=== PATIENT | female | born 1940 | race Caucasian/White ===

== ENCOUNTER 2019-01-29 07:09 | Day surgery (SDC) | payer MEDICARE ==
[~2019-01-29 07:09] MED LIST: BRIMONIDINE 0.2% OPHTH DROPS 5 ML ONE; BSS/LIDOCAINE/EPINEPHRINE 1 ML SYRINGE ONE; CYCLOPENTOLATE 1% OPHTH DROPS 2 ML ONE; EPINEPHrine 1 MG/ML AMP ONE; KETOROLAC 0.45% OPHTH DROPS ONE; PHENYLEPHRINE 2.5% OPHTH 2 ML DROPS ONE; PROPARACAINE 0.5% OPHTH DROPS 15 ML ONE; TIMOLOL 0.5% OPHTH DROPS ONE; TRIAMCIN/MOXIFLOX OPHTHALMIC 0.6 ML VIAL IO ONE; VANCOMYCIN OPHTHALMI 8MG/0.8ML 8 MG/0.8 ML SYRINGE IO ONE
[2019-01-29] MEDS ORDERED: MIDAZOLAM 2 MG/2 ML VIAL IVP ONE (07:10)
[2019-01-29] MEDS ORDERED: LACTATED RINGERS 500 ML IV ONE ×2 (07:35→08:39)
[2019-01-29] MEDS ORDERED: PROPARACAINE 0.5% OPHTH DROPS 15 ML RIGHTEYE ONE ×2 (07:35→08:52)
[2019-01-29] MEDS ORDERED: CYCLOPENTOLATE 1% OPHTH DROPS 2 ML RIGHTEYE ONE (07:35)
[2019-01-29] MEDS ORDERED: KETOROLAC 0.45% OPHTH DROPS RIGHTEYE ONE (07:35)
[2019-01-29] MEDS ORDERED: PHENYLEPHRINE 2.5% OPHTH 2 ML DROPS RIGHTEYE ONE (07:35)
--- NOTE | 2019-01-29 07:51 | ANESTHESIA ---
Pre-Anesthesia VS, & Labs - Diagnosis Right nuclear sclerotic cataract - Procedure Right phaco with IOL implant Vital Signs: Temp Pulse Resp BP Pulse Ox 37.1 C 85 16 172/73 H 95 01/29/19 07:36 01/29/19 07:36 01/29/19 07:36 01/29/19 07:36 01/29/19 07:36 Height 5 ft 7 in Weight (kg) 74.2 kg - NPO >8 hours, Other (Coffee at 0500) - Is Patient ?: Not Applicable - Lab Results Lab results reviewed: No Home Medications and Allergies Home Medications: Ambulatory Orders Cetirizine HCl [Allergy Relief] 10 mg PO DAILY 01/28/19 Guaifenesin [Mucinex] 600 mg PO DAILY 01/28/19 Cetirizine HCl [Allergy Relief] 10 mg PO DAILY 01/28/19 Guaifenesin [Mucinex] 600 mg PO DAILY 01/28/19 Allergies/Adverse Reactions: Allergies Allergy/AdvReac Type Severity Reaction Status Date / Time Sulfa (Sulfonamide Allergy Unknown Verified 01/28/19 13:13 Antibiotics) Anes History & Medical History - Anesthetic History Anesthesia Complications: reports: No previous complications Family history of Anesthesia Complications: Denies Family history of Malignant Hyperthermia: Denies - Medical History Cardiovascular: reports: None Pulmonary: reports: Shortness of breath Gastrointestinal: reports: None Urinary: reports: None Neuro: reports: None Musculoskeletal: reports: None Endocrine/Autoimmune: reports: None Blood Disorders: reports: None Skin: reports: Rosacea Smoking Status: Current some day smoker Psychosocial: reports: No issues indicated - Surgical History Eyes Ears Nose Throat (EENT): Tonsil/Adenoidectomy Gynecologic: Dilation and currettage, Other Dermatologic: Skin cancer surgery Exam General: Alert, Oriented x3 Dental: Poor dentition Mouth Openin Fingerbreadth Neck Mobility: Normal Mallampati classification: II Thyromental Distance: greater than 6 cm Respiratory: Lungs clear Cardiovascular: Regular rate Neurological: Normal speech Mental/Cognitive Status: Alert/Oriented X3 Cognitive Status: Within normal limits Plan Anesthesia Type: MAC Consent for Procedure(s) Verified and Reviewed: Yes Code Status: Attempt Resuscitation ASA classification: 2-Mild systemic disease Is this case an emergency?: No
[2019-01-29] MEDS ORDERED: BRIMONIDINE 0.2% OPHTH DROPS 5 ML OPTH ONE (08:51)
[2019-01-29] MEDS ORDERED: EPINEPHrine 1 MG/ML AMP IVP ONE (08:51)
[2019-01-29] MEDS ORDERED: BSS/LIDOCAINE/EPINEPHRINE 1 ML SYRINGE IO ONE (08:52)
[2019-01-29] MEDS ORDERED: TIMOLOL 0.5% OPHTH DROPS OPTH ONE (08:52)
[2019-01-29] MEDS ORDERED: CHONDR SULF/HYALURONATE SYRINGE IO ONE (08:52)
[2019-01-29] MEDS ORDERED: TRIAMCIN/MOXIFLOX OPHTHALMIC 0.6 ML VIAL IO ONE (08:53)
[2019-01-29] MEDS ORDERED: VANCOMYCIN OPHTHALMI 8MG/0.8ML 8 MG/0.8 ML SYRINGE IO ONE (08:53)
[2019-01-29 09:08] VITALS: BP 143/72
--- NOTE | 2019-01-29 09:28 | OPERATIVE REPORT ---
DATE OF SERVICE: 01/29/2019 Physician: Prakash Samano MD PREOPERATIVE DIAGNOSIS: Visually significant cataract, right eye. This was her first cataract surge ry. POSTOPERATIVE DIAGNOSIS: Visually significant cataract, right eye. This was her first cataract surg ariela. PROCEDURE: Phacoemulsification with posterior chamber intraocular lens implant, right eye. SURGEON: Prakash Samano MD ANESTHESIA: Monitored anesthesia care. COMPLICATIONS: None. OPERATIVE INDICATIONS: This is a 78-year-old woman with progressive vision loss in the right eye due to 3+ nuclear sclerotic cataract. Best corrected visual acuity was 20/40, with glare to 20/630 in t he right eye. Indications for surgery were overall decrease in vision, difficulty driving in low lig ht or at night, difficulty driving at night because headlights from other vehicles, and difficulty wi th glare or bright lights in any situation. She was consented at length concerning risks and benefit s of cataract surgery, after which she expressed a desire to proceed with surgery. OPERATIVE PROCEDURE: Patient was taken to OR #3 and placed under monitored anesthesia care. A surgi erica timeout was conducted confirming correct patient, correct procedure, and correct surgical site. She was given topical anesthesia, then prepped and draped in the usual sterile fashion. The eye was entered at the 12 and 9 o'clock positions. Intracameral Shugarcaine was injected into the anterior c hamber, followed by Viscoat. A continuous-tear curvilinear capsulorrhexis was performed. The nucleu s was hydrodissected and phacoemulsified. The cortex was evacuated using automated infusion and aspi ration. Provisc was injected in the capsular bag, and a 20.5 diopter intraocular lens inserted in th e bag. Approximately 0.8 mL of a mixture of triamcinolone, moxifloxacin and vancomycin was injected subconjunctivally in the superior quadrant for infection and inflammation prophylaxis. I and A, was used to evacuate the viscoelastic materials. The eye was inflated to physiologic pressure using lisbet nced salt solution and found to be watertight. Patient was taken from the operating room in good con dition and given postoperative instructions. TD: 01/29/2019 09:17
== END 2019-01-29 07:10 | disposition home or self-care (01) ==
LOC: SDS 07:09
PROVIDERS: ATTEND Ophthalmology
PROC: 08RJ3JZ Replacement of Right Lens with Synthetic Substitute, Percutaneous Approach (ICD-10-PCS; principal; 2019-01-29 08:30)
DX: H25.11 Age-related nuclear cataract, right eye (principal); F17.200 Nicotine dependence, unspecified, uncomplicated
CPT/HCPCS: 66984; A9270; J3490; V2632

== ENCOUNTER 2019-09-15 08:00 | Outpatient (CLI) | payer MEDICARE ==
[2019-09-15 17:52] LABS: BASOPHILS # (AUTO) 0.1 10^3/uL (0.0-0.1); BASOPHILS % (AUTO) 1.2 %; EOSINOPHILS # (AUTO) 0.3 10^3/uL (0.0-0.7); EOSINOPHILS % (AUTO) 4.7 %; LYMPHOCYTES # (AUTO) 1.3 10^3/uL (1.5-3.5); LYMPHOCYTES % (AUTO) 19.1 %; MEAN CORPUSCULAR HEMOGLOBIN 31.1 pg (27.0-31.0); MEAN CORPUSCULAR HGB CONC 32.3 g/dL (32.0-36.0); MEAN CORPUSCULAR VOLUME 96.4 fL (81.0-99.0); MEAN PLATELET VOLUME 9.5 fL (7.9-10.8); MONOCYTES # (AUTO) 0.7 10^3/uL (0.0-1.0); MONOCYTES % (AUTO) 10.1 %; NEUTROPHILS # (AUTO) 4.3 10^3/uL (1.5-6.6); NEUTROPHILS % (AUTO) 64.6 %; PLT - PLATELET COUNT 213 10^3/uL (130-450); RED CELL DISTRIBUTION WIDTH 13.4 % (12.0-15.0); WHITE BLOOD COUNT 6.6 x10^3/uL (4.8-10.8)
[2019-09-15 17:56] LABS: BILIRUBIN,URINE NEGATIVE (NEGATIVE); CLARITY,URINE HAZY (CLEAR); GLUCOSE, URINE (UA) NEGATIVE (NEGATIVE); KETONES,URINE (UA) NEGATIVE (NEGATIVE); LEUKOCYTE ESTERASE, URINE SMALL (NEGATIVE); NITRITE,URINE NEGATIVE (NEGATIVE); OCCULT BLOOD,URINE NEGATIVE (NEGATIVE); PROTEIN,URINE NEGATIVE (NEGATIVE); UROBILINOGEN,URINE 0.2 (NORMAL) E.U./dL (NORMAL)
[2019-09-15 18:01] LABS: ALBUMIN/GLOBULIN RATIO 1.3 (1.0-2.2); BILIRUBIN,TOTAL 0.3 mg/dL (0.2-1.0); CREATININE 0.7 mg/dL (0.4-1.0); TOTAL PROTEIN 7.1 g/dL (6.7-8.2)
[2019-09-15 18:36] LABS: RBC,URINE 0-5 /HPF (0-5)
[2019-09-15 18:37] LABS: BACTERIA,URINE Few /HPF (None Seen); SQUAMOUS EPITHELIAL CELL,UR MOD Squamous (<= Few)
== END 2019-09-15 23:59 | disposition home or self-care (01) ==
LOC: LAB.WCP 08:00
PROVIDERS: ATTEND Family Medicine
DX: R60.9 Edema, unspecified (principal); I10 Essential (primary) hypertension
CPT/HCPCS: 36415; 80053; 81001; 85025

== ENCOUNTER 2019-09-15 11:47 | Outpatient (CLI) | payer MEDICARE ==
--- NOTE | 2019-09-16 09:25 | XRAY Report ---
Reason: COPD, SHORTNESS OF BREATH Procedure Date: 09/15/2019 Accession Number: [id number] / [id number] Procedure: WCP - Chest 2 View X-Ray CPT Code: 41786 Final Report FULL RESULT: EXAM: CHEST RADIOGRAPHY 2 VIEWS EXAM DATE: 09/15/2019. CLINICAL HISTORY: Chronic obstructive pulmonary disease exacerbation. Shortness of breath. COMPARISON: AP portable chest done 06/30/2007. TECHNIQUE: PA and lateral views. FINDINGS: Lungs/Pleura: Normal vasculature. Increased density in the right lateral costal phrenic angle. Lungs are otherwise clear. No pleural fluid or pneumothorax. Mediastinum: Mild cardiomegaly and aortic tortuosity and atherosclerosis. Otherwise normal mediastinal contours. Bones: Mild degenerative changes of the spine. IMPRESSION: Small focus of increased density in the right lateral costophrenic angle; differential includes small focus of scar, atelectasis or pneumonia. Lungs are otherwise clear. Mild cardiomegaly, the heart larger than on 06/30/2007. RADIA
== END 2019-09-15 23:59 | disposition home or self-care (01) ==
LOC: DI.WCP 11:47
PROVIDERS: ATTEND Family Medicine
DX: J44.1 Chronic obstructive pulmonary disease with (acute) exacerbation (principal); I51.7 Cardiomegaly; R91.8 Other nonspecific abnormal finding of lung field
CPT/HCPCS: 71046

== ENCOUNTER 2019-11-06 08:00 | Outpatient (CLI) | payer MEDICARE ==
[2019-11-06 19:24] LABS: CALCIUM 9.4 mg/dL (8.5-10.3); CREATININE 0.9 mg/dL (0.4-1.0)
== END 2019-11-06 23:59 | disposition home or self-care (01) ==
LOC: LAB.WCP 08:00
PROVIDERS: ATTEND Family Medicine
DX: I10 Essential (primary) hypertension (principal)
CPT/HCPCS: 36415; 80048

== ENCOUNTER 2019-12-07 08:00 | Outpatient (CLI) | payer MEDICARE | END 2019-12-07 23:59 | disposition home or self-care (01) | LOC: LAB.WCP 08:00 | PROVIDERS: ATTEND Internal Medicine | DX: N30.00 Acute cystitis without hematuria (principal) | CPT/HCPCS: 81002 ==

== ENCOUNTER 2019-12-15 08:44 | Outpatient (CLI) | payer MEDICARE | END 2019-12-15 08:45 | disposition home or self-care (01) | LOC: DI 08:44 | PROVIDERS: ATTEND Family Medicine | DX: I51.7 Cardiomegaly (principal); R06.02 Shortness of breath; I10 Essential (primary) hypertension; I34.0 Nonrheumatic mitral (valve) insufficiency | CPT/HCPCS: 93306 ==

== ENCOUNTER 2020-07-05 07:00 | Outpatient (CLI) | payer MEDICARE ==
[2020-07-05 13:50] LABS: BASOPHILS % (AUTO) 0.8 %; HCT - HEMATOCRIT 31.5 % (37.0-47.0); HGB - HEMOGLOBIN 10.3 g/dL (12.0-16.0); LYMPHOCYTES % (AUTO) 21.8 %; MEAN CORPUSCULAR HEMOGLOBIN 30.7 pg (27.0-31.0); MEAN CORPUSCULAR HGB CONC 32.7 g/dL (32.0-36.0); MEAN PLATELET VOLUME 10.1 fL (7.9-10.8); MONOCYTES % (AUTO) 9.4 %; NEUTROPHILS % (AUTO) 67.2 %; PLT - PLATELET COUNT 133 10^3/uL (130-450); RED BLOOD COUNT 3.35 10^6/uL (4.20-5.40); RED CELL DISTRIBUTION WIDTH 15.3 % (12.0-15.0); WHITE BLOOD COUNT 3.6 x10^3/uL (4.8-10.8)
[2020-07-05 13:53] LABS: SLIDE REVIEW? Indicated
[2020-07-05 14:03] LABS: ALBUMIN 2.8 g/dL (3.2-5.5); ALBUMIN/GLOBULIN RATIO 0.9 (1.0-2.2); ALKALINE PHOSPHATASE 82 IU/L (42-121); ALT ALANINE AMINOTRANSFERASE 34 IU/L (10-60); AST ASPARTATE AMINOTRANSFERASE 29 IU/L (10-42); BILIRUBIN,TOTAL < 0.2 mg/dL (0.2-1.0); BUN - BLOOD UREA NITROGEN 20 mg/dL (6-20); CALCIUM 9.2 mg/dL (8.5-10.3); CARBON DIOXIDE - CO2 26 mmol/L (21-32); CHLORIDE 100 mmol/L (101-111); CREATININE 0.5 mg/dL (0.4-1.0); GFR - MDRD 119 (>89); GLUCOSE 91 mg/dL (70-100); POTASSIUM 4.2 mmol/L (3.5-5.0); SODIUM 141 mmol/L (135-145); TOTAL PROTEIN 5.8 g/dL (6.7-8.2)
[2020-07-05 14:13] LABS: ABNORMAL LYMPHS % (MANUAL) 0 %
[2020-07-05 14:18] LABS: BAND NEUTROPHILS % (MANUAL) 3 %; BASOPHILS % (MANUAL) 1 %; LYMPHOCYTES # (MANUAL) 0.7 10^3/uL (1.5-3.5); LYMPHOCYTES % (MANUAL) 14 %; MONOCYTES # (MANUAL) 0.1 10^3/uL (0.0-1.0); NEUTROPHILS # (MANUAL) 2.7 10^3/uL (1.5-6.6); REACTIVE LYMPHS % (MANUAL) 5 %
[2020-07-05 14:19] LABS: PLATELET MORPHOLOGY NORMAL APPEARANCE (NORMAL); RBC MORPHOLOGY (MULTIPLE) 1+ ANISOCYTOSIS (NORMAL); WBC MORPHOLOGY (MULTIPLE) 1+ TOXIC GRANULATION (NORMAL)
[2020-07-05 14:20] LABS: DIFFERENTIAL COMMENT MANUAL DIFFERENTIAL; PLATELET ESTIMATE, MANUAL NORMAL (130-450,000) (NORMAL)
== END 2020-07-05 23:59 | disposition home or self-care (01) ==
LOC: LAB.R 07:00
PROVIDERS: ATTEND Internal Medicine
DX: C56.9 Malignant neoplasm of unspecified ovary (principal)
CPT/HCPCS: 80053; 85025

== ENCOUNTER 2020-07-12 14:45 | Outpatient (CLI) | payer MEDICARE ==
[2020-07-12 20:11] LABS: BASOPHILS % (AUTO) 0.7 %; EOSINOPHILS # (AUTO) 0.2 10^3/uL (0.0-0.7); EOSINOPHILS % (AUTO) 3.7 %; HGB - HEMOGLOBIN 10.2 g/dL (12.0-16.0); LYMPHOCYTES # (AUTO) 1.4 10^3/uL (1.5-3.5); LYMPHOCYTES % (AUTO) 24.9 %; MEAN CORPUSCULAR HEMOGLOBIN 30.9 pg (27.0-31.0); MEAN CORPUSCULAR HGB CONC 31.9 g/dL (32.0-36.0); MEAN PLATELET VOLUME 9.3 fL (7.9-10.8); MONOCYTES # (AUTO) 0.9 10^3/uL (0.0-1.0); MONOCYTES % (AUTO) 15.5 %; NEUTROPHILS % (AUTO) 52.9 %; PLT - PLATELET COUNT 263 10^3/uL (130-450); RED CELL DISTRIBUTION WIDTH 16.4 % (12.0-15.0); WHITE BLOOD COUNT 5.6 x10^3/uL (4.8-10.8)
[2020-07-12 20:13] LABS: ALBUMIN 3.4 g/dL (3.2-5.5); ALBUMIN/GLOBULIN RATIO 1.1 (1.0-2.2); BILIRUBIN,TOTAL 0.5 mg/dL (0.2-1.0); CREATININE 0.8 mg/dL (0.4-1.0); POTASSIUM 3.6 mmol/L (3.5-5.0); TOTAL PROTEIN 6.4 g/dL (6.7-8.2)
== END 2020-07-12 23:59 | disposition home or self-care (01) ==
LOC: LAB.R 14:45
PROVIDERS: ATTEND Internal Medicine
DX: C56.9 Malignant neoplasm of unspecified ovary (principal)
CPT/HCPCS: 36415; 80053; 85025

== ENCOUNTER 2020-07-29 09:45 | Outpatient (CLI) | payer MEDICARE ==
--- NOTE | 2020-07-29 12:25 | CONSULTATION NOTE ---
Palliative Care Consultation - Referral Referring Provider: Dr. Guerda Roche Time of Visit: 945-02 Referral setting: Home Referral Reason: Ovarian CA/COPD/Goals of Care - Information Sources Records reviewed: RN notes reviewed, Previous records reviewed History/Review of Systems obtained from: Patient Exam limitations: No limitations - History of Present Illness Brief History of Present Illness: This is a 79-year-old woman with metastatic primary ovarian high-grade serous carcinoma, who most recently presented for her first hospitalization in April with increasing shortness of breath, was found to have a large right pleural effusion, left additional mass with peritoneal carcinomatosis, and hepatic c apsular implants. She had underwent a placement of a Port-A-Cath and was initiated on cis-muscogee/Taxol end of May, but then developed increasing abdominal distention and was hospitalized a second time for distal large bowel obstruction. Her bilateral ovarian masses were compressing on sigmoid colon, they had attempted endoscopic stenting but was unsuccessful, so she received a laparoscopic transverse loop colostomy. She unfortunately was also neutropenic, developed Pseudomonas, and was discharged on IV antibiotics.She has been followed by home health, and has slowly improved. Palliative care is meeting with her today to review goals of care, as she is decided not to pursue further chemotherapy. Patient also has comorbidity of stage IV congestive heart failure, known cardiomyopathy with an ejection fraction of 35 to 40%, chronic left bundle branch block, COPD recently stopped smoking, and a left calf superficial vein thrombosis for which she is on Eliquis. She has been at home, functionally improving, she is eating and drinking. She denies any pain, her most persistent symptom has been fatigue. She is intermittently tearful through our conversation, but we are talk about goals of care, she does deny significant depression. She is having trouble adjusting to her colostomy, her daughter is still providing all the care, including emptying the back and changing the colostomy, she does know she needs to learn eventually. She does have longstanding shortness of breath, though reports this is improved with the cessation of smoking. She has good family support, though does admit to financial stressors and concerns for the future. Medical/Surgical History - Past Medical History Cardiovascular: reports: Congestive heart failure (STAGE IV/cardiomyopathy), Hypertension, Deep vein thrombosis (left calf superficial vein thrombosis) Respiratory: reports: COPD, Emphysema, Shortness of breath Neuro: None Endocrine/Autoimmune: reports: None GI: reports: Other (colostomy for bowel obstruction) HEALTH INFORMATION INTERNSHIP: reports: Ovarian cancer : reports: None HEENT: reports: Chronic vision loss Psych: reports: Depression, Anxiety Musculoskeletal: reports: None Derm: reports: Rosacea MRSA Hx?: No - Past Surgical History General: reports: Bowel surgery (for obstruction) /HEALTH INFORMATION INTERNSHIP: reports: Dilation and currettage HEENT: reports: Tonsil/Adenoidectomy Derm: reports: Skin cancer surgery - Substance History Use: Uses substance without health or social issues: Tobacco (quit in April), Alcohol (rarely) Social History - Living Situation Living arrangement: At home Living Situation: With family Support System: Patient has been in the same house for over 43 years, she admits to having a "collection", houses quite cluttered, she reports they have been working on cleaning it out. Her about 2-1/2 years ago, her daughter Rosemary at that time moved in to help with her dad. She does live here with her son Phillip. 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 She does have friends and family that are quite concerned and supportive. She has 4 siblings that are still very active and she is close with as well. Family History - Family History Family History: Mother: , Cancer, Father: , CAD, Sister: Alive and Well (4 siblings still alive), Brother: Alive and Well Family History Comment/Other: son had colon cancer Medications/Allergies - Medications Home Medications: Ambulatory Orders Medication Instructions Recorded Confirmed Albuterol Sulfate [Proair Hfa 2 puffs INH Q6HR PRN 07/29/20 07/29/20 Inhaler] Apixaban [Eliquis] 5 mg PO BID 07/29/20 07/29/20 Aspirin [[place] Aspirin] 81 mg PO DAILY 07/29/20 07/29/20 Carvedilol [Coreg] 6.25 mg PO BID 07/29/20 07/29/20 Furosemide [Lasix] 20 mg PO BID 07/29/20 07/29/20 Ipratropium/Albuterol [Duoneb] 1 vial INH Q6HR PRN 07/29/20 07/29/20 Loperamide [Imodium] 2 mg PO QID PRN 07/29/20 07/29/20 Losartan Potassium 25 mg PO BID 07/29/20 07/29/20 Mometasone/Formoterol [Dulera 100 2 puffs INH BID 07/29/20 07/29/20 Mcg-5 Mcg Inhaler] Nitroglycerin [Nitrostat] 0.4 mg SL .Q5 PRN 07/29/20 07/29/20 Ondansetron [Ondansetron Odt] 8 mg PO Q8HR PRN 07/29/20 07/29/20 Pantoprazole [Protonix] 40 mg PO DAILY 07/29/20 07/29/20 Senna [Senokot] 8.6 mg PO DAILY PRN MDD titrate to 07/29/20 07/29/20 effect polyethylene glycoL 3350 [Miralax] 17 gm PO DAILY PRN 07/29/20 07/29/20 - Allergies Allergies/Adverse Reactions: Allergies Allergy/AdvReac Type Severity Reaction Status Date / Time Sulfa (Sulfonamide Allergy Unknown Verified 01/28/19 13:13 Antibiotics) Review of Systems - Constitutional Constitutional: reports: Fatigue (persistent), Weakness, Weight loss. denies: Fever, Chills - Eyes Eyes: reports: Vision loss - Ears, Nose & Throat Ears, Nose & Throat: reports: Hearing loss, Hearing aids, Dry mouth. denies: Mouth lesions - Cardiovascular Cardiovascular: reports: Edema (improved), Lightheadedness, Exertional dyspnea, Decr. exercise tolerance - Respiratory Respiratory: reports: Orthopnea (sleeps on several pillows), SOB with exertion. denies: Cough, Sputum production, Wheezing - Gastrointestinal Gastrointestinal: reports: Early satiety, Other (colostomy). denies: Abdominal pain, Constipation, Coffee grounds emesis - Genitourinary Genitourinary: reports: Incontinence - Musculoskeletal Musculoskeletal: reports: Muscle aches, Stiffness, Muscle weakness, Joint pain - Integumentary Integumentary: reports: Dryness - Neurological Neurological: reports: General weakness - Psychiatric Psychiatric: reports: Depression, Anxiety - Hematologic/Lymphatic Hematologic/Lymph: reports: Bruising - All Other Systems All Other Systems: reports: Reviewed and negative Physical Exam - Vital Signs Temperature: 97.5 C Pulse Rate: 78 Respiratory Rate: 18 O2 Saturation: 95 (ra @ rest) Blood Pressure: 132/72 - Physical Exam General Appearance: positive: No acute distress, Alert Eyes Bilateral: positive: Normal inspection, Other (watery eyes/allergies) ENT: positive: ENT inspection nml Neck: positive: Trachea midline Cardiovascular: positive: Regular rate & rhythm Respiratory: positive: Diminished throughout. negative: Wheezes Abdomen: positive: Non-tender, Soft, Nml bowel sounds, Distended. negative: Mass Skin: positive: Pallor Extremities: positive: Pedal edema (trace up to mid calf) Neurologic/Psychiatric: positive: Oriented x3, Mood/affect nml, Weakness Palliative Care - POLST Patient has POLST: Yes POLST Status: DNR, Selective Treatment Pain: No pain Tiredness/Fatigue: Mild (1-3) Drowsiness/Sedation: Mild (1-3) Nausea: None Anorexia: Mild (1-3) Dyspnea: Moderate (4-6) Depression: Mild (1-3) Anxiety: Mild (1-3) Feelings of wellbeing/Perceived Quality of Life: Fair, Acceptable, Improved Sleep: Sleeps well Constipation: Intermittent constipation Performance Status: Patient is ambulatory with walker, feels like she is improving in strength. She is having assistance with bathing from home health aide, but getting close to discharge with this. Patient does express decreased activity tolerance, and not back to baseline, though does admit to having functional decline for couple months before her first hospitalization.I would put her at a PPS of 60% - Palliative Care Discussion: Met with patient with specific goal to talk about goals of care. Patient had talked to oncologist, offered her chemotherapy at any point she wanted to come back. She reports she is getting pressure from multiple people, but her family will be supportive of what ever decision she makes. She does feel like her current quality of life is acceptable, recognizing no treatment she will continue to decline. Her understanding is she would have several months. At this point she feels at peace of not pursuing further treatment. Her experience with her last treatment, only worsened her quality of life, though it was in the context of her bowel obstruction. She does understand no treatment means the cancer progresses, and is okay with this. She is hoping to make it to a family reunion this October in [place] with her siblings, and hoping to get some of her affairs in order. She herself took care of several family members who had end-of-life events, she is familiar with caregiving and what that might look like. She wanted to complete the POLST. At this point in time, given her improvement in her health, she would agree to hospitalization for reversible conditions, but is quite clear she would be a DN AR/DNI. Her goal for end-of-life, is to have a comfortable respectful at home, she is not fearful of this. She does not feel like she is depressed, she does have depressive symptoms of sadness and grief over her decline. She is hoping to continue to be able to live in the moment and spend time with friends and family. I did introduce hospice is part of the continuum, at this point she is focusing on maximizing function and quality of life, will continue with home health for a few more weeks. They are working on getting them independent in colostomy management. We also talked about DPOA, patient does have 3 children, discussed the need to designate one is final decision maker. She feels like her son Rico Butler is his close to how she thinks of all 3 children. Did provide her a simple form, she will discuss with children and decide. Impression and Recommendations - Palliative Care Impression: This is a 79-year-old woman who presents with multiple serious illnesses, including ovarian cancer with peritoneal mets/liver mets and recent bowel obstruction with transverse colostomy. She also has known stage IV CHF, advance d COPD, and has experienced functional decline over the last several months. She is improving from her last hospitalization, is hoping for some quantity of time as well as quality. She is choosing at this juncture no further chemotherapy, and focus on quality of life. Palliative care to provide support regarding pain and symptom management, though presents with low symptom burden today, and anticipatory guidance and advanced care planning Recommendations/Counseling Done: 1. Depression. Patient does present with depressive symptoms, is appropriately tearful through the conversation. We did discuss the continuum of depression from depression symptoms to persistent sadness and mood disorder. At this point in time patient appears to be adjusting, counseled regarding the role of antidepressants. Counseled also regarding coping with serious illness, normal grief and loss reactions, and anticipatory guidance. 2. Ovarian cancer with peritoneal/liver mets. Patient does have high tumor burden, though low symptom burden. Patient without treatment, would expect progression of cancer with prognosis of 6 months or less, she would meet hospice criteria at this point, we will continue to monitor for for functional decline and worsening symptoms. 3. Advanced care planning. Counseling provided regarding eliciting goals of care, completion of the POLST with DN AR/DNI and selective treatments. Counseled regarding the continuum of care, including the role of palliative care and hospice. Patient continue with home health with improvement, goals or functional improvement is well as independence and management of colostomy. Recommended patient complete DPOA. Agreed for meeting in 3 weeks, daughter Rosemary was not present for visit, will include for future planning issues. She did show up at end of visit, at this point in time has no pressing questions, I did provide contact information. 75 minutes with greater than 50% of this time in counseling regarding goals of care, setting of rapport, evaluation of symptom management, and anticipatory guidance.
--- OUTSIDE RECORDS SUMMARY | 2020-08-03 01:55 | EXTERNAL MEDICAL SUMMARY RPT | Continuity of Care Document ---
:1940 Demographics Phone Unavailable Preferred Language Unknown Marital Status Unknown Ep[employer]alian Affiliation Unknown Race Unknown Ethnic Group Unknown Author Organization [facility] Address [address] [place] [address] Phone Problems date description facility [id number] Pleural effusion, not elsewhere [facility] classified [id number] Gastrointestinal hemorrhage, [facility] unspecified Social History date description facility [id number]
== END 2020-07-29 09:46 | disposition home or self-care (01) ==
LOC: PC 09:45
PROVIDERS: ATTEND Nurse Practitioner Adult Health
DX: Z51.5 Encounter for palliative care (principal); F32.9 Major depressive disorder, single episode, unspecified; C56.9 Malignant neoplasm of unspecified ovary; C78.6 Secondary malignant neoplasm of retroperitoneum and peritoneum; C78.7 Secondary malignant neoplasm of liver and intrahepatic bile duct; I11.0 Hypertensive heart disease with heart failure; I50.9 Heart failure, unspecified; J43.9 Emphysema, unspecified; Z93.3 Colostomy status; Z87.891 Personal history of nicotine dependence; Z66 Do not resuscitate
CPT/HCPCS: 99345

== ENCOUNTER 2020-08-25 09:00 | Outpatient (CLI) | payer MEDICARE ==
--- NOTE | 2020-08-25 10:44 | CONSULTATION NOTE ---
Palliative Care Follow Up - Referral Referring Provider: Dr. Sarabia Time of Visit: 6516-2478 Referral setting: Home Referral Reason: Ovarian CA - Information Sources Records reviewed: RN notes reviewed, Previous records reviewed History/Review of Systems obtained from: Patient - History of Present Illness Update Brief HPI Update: This is a 79-year-old woman with metastatic primary ovarian high-grade serous carcinoma, with known peritoneal carcinomatosis and hepatic capsular implants. She had initiated chemotherapy on cis-[place]/Taxol end of May, but unfortunately developed distal bowel obstruction, developed infection secondary her neutropenia, and received a laparoscopic transverse loop colostomy. She has been followed by [facility], has been steadily improving, she had been on IV antibiotics which had precipitated a severe rash, despite several weeks since then, she still has persistent pruritus rash, and is quite uncomfortable. Her skin is quite dry and is been fairly persistent. Patient has regained some functional status, she is ambulatory for short distances though has pretty severe activity intolerance. She also though has comorbidies of stage IV congestive heart failure, known cardiomyopathy with lower extremity swelling improved, and COPD who recently stopped smoking. She does have intermittent pain, bloating, and had decided not to return back for treatment. Patient is now more somewhat ambivalent. Patient did have some slowing of her bowels and concern for recurrent obstruction, she did receive a CT scan 08/11/20 which showed increased atelectasis of her left lung base, right pleural effusion is stable, her liver hypodensities had measures smaller, as well as her retroperitoneal lymph nodes, her right and left ovarian masses appeared to measure slightly smaller, with her left ovarian mass currently at 39 x 41.9 mm compared to prior 44 x 48.1 mm, and right ovarian mass is currently at 36.1 x 29.8 mm compared to her prior 32.6 x 44.8 mm. Given patient's stabilization, and some improvement, she is wondering if there is "low-dose" chemotherapy, other options, including immunotherapy. We did discuss in the context that she has actually an improved scan, mild improvement in her symptoms, that it would not be unreasonable to meet again with her oncologist. But if she were planning to do this, she need to do this more urgently then continue to wait on this. Past Medical History: Congestive heart failure/cardiomyopathy, hypertension, left calf superficial vein thrombosis on Eliquis, COPD, emphysema, right pleural effusion, colostomy, chronic vision loss, depression, anxiety, rosacea Social History - Living Situation Living arrangement: At home Living Situation: With family Support System: Patient is living in the same house for over 43 years, she does have "a collection". Her about 2-1/2 years ago, her daughter Rosemary moved in to help with her dad, she comes with a 7-year-old grandson. 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 She has many friends and families that are quite concerned and remains supportive. She has four siblings that are still very active that she is close to, she is hoping to make it to the family reunion in [place] in October. Medications/Allergies - Medications Home Medications: Ambulatory Orders Medication Instructions Recorded Confirmed Albuterol Sulfate [Proair Hfa 2 puffs INH Q6HR PRN 07/29/20 08/26/20 Inhaler] Apixaban [Eliquis] 5 mg PO BID 07/29/20 08/26/20 Aspirin [[place] Aspirin] 81 mg PO DAILY 07/29/20 08/26/20 Carvedilol [Coreg] 6.25 mg PO BID 07/29/20 08/26/20 Furosemide [Lasix] 20 mg PO BID 07/29/20 08/26/20 Ipratropium/Albuterol [Duoneb] 1 vial INH Q6HR PRN 07/29/20 08/26/20 Loperamide [Imodium] 2 mg PO QID PRN 07/29/20 08/26/20 Losartan Potassium 25 mg PO BID 07/29/20 08/26/20 Mometasone/Formoterol [Dulera 100 2 puffs INH BID 07/29/20 08/26/20 Mcg-5 Mcg Inhaler] Nitroglycerin [Nitrostat] 0.4 mg SL .Q5 PRN 07/29/20 08/26/20 Ondansetron [Ondansetron Odt] 8 mg PO Q8HR PRN 07/29/20 08/26/20 Pantoprazole [Protonix] 40 mg PO DAILY 07/29/20 08/26/20 Senna [Senokot] 8.6 mg PO DAILY PRN MDD titrate to 07/29/20 08/26/20 effect polyethylene glycoL 3350 [Miralax] 17 gm PO DAILY PRN 07/29/20 08/26/20 Prednisone 5 mg PO DAILY 08/26/20 08/26/20 Simethicone [Gas Relief] 180 mg PO TID 08/26/20 08/26/20 - Allergies Allergies/Adverse Reactions: Allergies Allergy/AdvReac Type Severity Reaction Status Date / Time Sulfa (Sulfonamide Allergy Unknown Verified 01/28/19 13:13 Antibiotics) Review of Systems - Constitutional Constitutional: reports: Fatigue (persistent and worsening), Weakness (ambulating more), Weight loss. denies: Fever, Chills - Eyes Eyes: reports: Vision loss, Corrective lenses (needs new glasses after cataract surgery on right) - Ears, Nose & Throat Ears, Nose & Throat: reports: Hearing loss, Hearing aids, Dry mouth. denies: Mouth lesions - Cardiovascular Cardiovascular: reports: Edema (improved), Lightheadedness, Exertional dyspnea, Decr. exercise tolerance - Respiratory Respiratory: reports: Orthopnea (sleeps on several pillows), SOB with exertion. denies: Cough, Sputum production, Wheezing - Gastrointestinal Gastrointestinal: reports: Abdominal pain (reports increase discomfort with palpation/bag change yesterday), Early satiety, Other (colostomy;; significant gas). denies: Constipation, Coffee grounds emesis - Genitourinary Genitourinary: reports: Incontinence - Musculoskeletal Musculoskeletal: reports: Back pain (new symptom), Muscle aches, Stiffness, Muscle weakness, Joint pain, Assistive devices (uses walker) - Integumentary Integumentary: reports: Rash (worsening; all body mostly on trunk/back but on arms/legs had improved with prednisione now bothersome again), Pruritis (benadryl not helpful), Dryness, Hair changes (alopecia) - Neurological Neurological: reports: General weakness, Memory problems - Psychiatric Psychiatric: reports: Depression, Anxiety - Hematologic/Lymphatic Hematologic/Lymph: reports: Bruising - All Other Systems All Other Systems: reports: Reviewed and negative Physical Exam - Vital Signs Temperature: 97.7 C Pulse Rate: 75 Respiratory Rate: 18 O2 Saturation: 94 (ra @ rest) Blood Pressure: 118/64 - Physical Exam General Appearance: positive: No acute distress, Alert Eyes Bilateral: positive: Normal inspection ENT: positive: ENT inspection nml Neck: positive: Trachea midline Cardiovascular: positive: Regular rate & rhythm Respiratory: positive: Diminished throughout. negative: Wheezes Abdomen: positive: Soft, Nml bowel sounds, Tenderness, Distended. negative: Mass Skin: positive: Pallor, Dryness, Rash Extremities: positive: Pedal edema (trace up to mid calf) Neurologic/Psychiatric: positive: Oriented x3, Mood/affect nml, Weakness, Flat affect Palliative Care - POLST Patient has POLST: Yes POLST Status: DNR, Selective Treatment Pain: Pain worsening, Location (left abdominal area; low backl) Tiredness/Fatigue: Moderate (4-6) Drowsiness/Sedation: Mild (1-3) Nausea: None Anorexia: Mild (1-3) (early satiet) Dyspnea: Moderate (4-6) Depression: Mild (1-3) Anxiety: Moderate (4-6) Feelings of wellbeing/Perceived Quality of Life: Fair, Acceptable, Improved Sleep: Variable sleep pattern Constipation: No Performance Status: Patient is able to ambulate short distances, she uses a walker. Her [id number] is going to take over helping with bathing, as home health aide is being discharged. They do help her with meal prep, transportation, her son is helping her with finances. I would put her at a PPS of 60% - Palliative Care Discussion: Patient has many stressors, most persistent is her financial. Her son is trying to help her. Did go ahead and make a referral to [facility] to see if she would qualify for some assistance. Encouraged her to contact friends of friends for some of her medical bills. Patient had made a choice not to continue with treatment, she remains now somewhat more ambivalent. She is actually plateaued or may be even improved a little, she is still having persistent fatigue and a high anxiety regarding her pending decline. She is asking about other treatment modalities, discussed it would most likely be more satisfying if she had a conversation with her oncologist. She has had a CT scan done recently, which actually showed decreased size of tumors, did encourage her to at least go have a conversation to put herself in a better place of acceptance. She remains quite resistant to transitioning to hospice, but does understand without treatment she will continue to decline. She would like to focus on quality of life, she is feeling more fatigued and is hoping that she would feel better at least for the short- term. She does have some mild depression, is not interested in antidepressant, her goals are to make it to the family reunion this summer in October. Impression and Recommendations - Palliative Care Impression: This is a 79-year-old woman who presents with multiple serious illnesses, including ovarian cancer with peritoneal mets/liver mets and transverse colostomy for bowel obstruction. She also has known stage IV CHF, advanced COPD, but has stabilized and improved some from her last hospitalization. She is hoping for quantity of time as well as quality, she is now wondering about further chemotherapy and ambivalent whether she would pursue or not. She had recent CT scan, that actually showed decrease in her tumor burden, have encouraged her to at least meet one more time with oncology. Palliative care to provide support regarding pain and symptom management, anticipatory guidance, and transition to hospice when appropriate Recommendations/Counseling Done: 1. Rash. This is remained persistent since her IV antibiotics, providing a significant mount discomfort. She has used topical, Benadryl, with fluctuating results. We will go ahead and initiate prednisone 5 mg daily at least for short- term, call to coordinate with PCP. 2. Fatigue this is multifactorial, Patient with multiple comorbidities, some weight loss, is doing better with her fluids, and some persistent depressive symptoms. Discussed prednisone 5 mg may also help her with her energy and as well as sense of wellbeing. 3. Depression. Patient presents with fluctuating depressive symptoms. She is somewhat ambivalent regarding now having declined therapy for her cancer. We did discuss in light of her current situation, with her physical status slightly improved or plateaued, her recent CT scan with some improvements, recommended she follow-up with oncology. If she is considering doing this, recommended she do this as soon as possible if she is going to embark on any treatment plan. 4. Colostomy. Patient still having difficulty excepting colostomy, her daughter still empties her bag and changes it. Unfortunately fell off the other day, adding to her distress. Encouraged she continue to participate in care of the colostomy, as this will facilitate some acceptance. Counseling provided to normalize feelings of distress with body image changes. 5. Generalized weakness. Patient has made some improvement with her functional status, counseling provided regarding ways of progressive ambulation, adding more activity into her day. Patient is pending home health care discharge, encouraged her to go out with her friends, plan short trips, and "live more in the moment" given the seriousness of her current situation. 6. Advanced care planning. Patient does have POLST in place with DN AR/DNI and selective treatments. Patient does not feel like she is in a place to transition to hospice, as she is very anxious but currently is not excepting any life- prolonging treatments. Counseling provided again regarding cancer treatments, overview, would need to define again what would be possible through oncology and her particular cancer. 60 minutes with greater than 50% of this time in counseling regarding cancer diagnosis, symptom management, and anticipatory guidance and coordination of care with PCP and home health. [facility]
== END 2020-08-25 09:01 | disposition home or self-care (01) ==
LOC: PC 09:00
PROVIDERS: ATTEND Nurse Practitioner Adult Health
DX: Z51.5 Encounter for palliative care (principal); L29.9 Pruritus, unspecified; R53.83 Other fatigue; F32.9 Major depressive disorder, single episode, unspecified; R53.1 Weakness; C56.9 Malignant neoplasm of unspecified ovary; C78.6 Secondary malignant neoplasm of retroperitoneum and peritoneum; I50.9 Heart failure, unspecified; I11.0 Hypertensive heart disease with heart failure; J43.9 Emphysema, unspecified; Z87.891 Personal history of nicotine dependence; Z93.3 Colostomy status; Z66 Do not resuscitate
CPT/HCPCS: 99350

== ENCOUNTER 2020-09-19 15:30 | Outpatient (CLI) | payer MEDICARE ==
--- NOTE | 2020-09-19 17:30 | CONSULTATION NOTE ---
Palliative Care Follow Up - Referral Referring Provider: Dr. Guerda Lang Time of Visit: [id number] Referral setting: Home Referral Reason: Metastatic Ovarian CA/Bowel obstruction/Goals of Care - Information Sources Records reviewed: Previous records reviewed History/Review of Systems obtained from: Patient, Family (daughter Rosemary present) Exam limitations: Clinical condition (patient [place] with limited understanding of medical issuse) - History of Present Illness Update Brief HPI Update: This is a 79-year-old woman with metastatic primary ovarian high-grade serous carcinoma with known peritoneal carcinomatosis and hepatic capsular implants. She had initiated chemotherapy with cis-[place]'/Taxol end of May, but unfortunately developed a distal bowel obstruction and was hospitalized with multiple complications at that point in time. Received a call from her daughter this morning, she has been vomiting large amounts of green bile in volumes of 1 to 2 quarts, with relief of her discomfort. They had been trying ondansetron without relief, encouraged to try Compazine, and agreed for visit later in the day. Patient denies any pain, just abdominal pressure and mild regurgitation. She does get relief with vomiting, but did vomit a large amount during our visit as well, of watery bile green fluid. Patient has been somewhat ambivalent about whether to return to treatment, she had seen oncology on 09/14 with confirmation that her CT scan from 09/07 shows progression of disease, ascites and pleural effusions. It was not large enough for paracentesis, according to the note she was going to move forward with treatment at a modified dose. Her goals regarding this, were to make it to a family reunion in [place] in October and was scheduled for her first treatment this . On exam, patient does appear uncomfortable, slightly flushed from vomiting. Her abdomen is taut with high pitched bowel tones. She does have a colostomy with only residual liquid stool in it, last bowel movement was Saturday. She is only been taking fluids, and showing signs of dehydration. She is afebrile, her blood pressure is 130/68, and pulse 84. Patient does understand the seriousness of her illness, and much time was spent discussing patient's options to receive hospitalization, exploration of what obstruction is being caused by, as well as relief of her symptoms, possible placement of a venting gastrostomy tube for comfort or we could transition to comfort measures, focus on keeping comfort with just medications, and transition to hospice. Rosemary her daughter who is present, is deferring to patient to make the decision. After much discussion, and patient's ambivalence, I did recommend given the severity of her symptoms, that they consider at least an evaluation and possible hospitalization to stabilize and improve her comfort.She could at any point make a decision to transition to hospice and return home with hospice care.Recommended she go into night, as she is already behind in fluids, and if any interventions are going to be offered or scans, she needs to have those done as soon as possible. Past Medical History: Congestive heart failure/cardiomyopathy, hypertension, left calf superficial vein thrombosis on Eliquis, COPD, emphysema, right pleural effusion, colostomy, chronic vision loss, depression, anxiety, rosacea, history large bowel obstruction, history of pseudomonal bacteremia Social History - Living Situation Living arrangement: At home Living Situation: With family Support System: Patient lives at home with her brenda daughter Rosemary, she has been living in the same house for over 43 years and does have "a collection". Her about 2 and half years ago, at that point in time her daughter had moved in with her 7-year-old grandson. 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 She has multiple financial stressors, she has many friends and family that are quite concerned and supportive. She has 4 siblings that are still very active and she is close to. Medications/Allergies - Medications Home Medications: Ambulatory Orders Medication Instructions Recorded Confirmed Albuterol Sulfate [Proair Hfa 2 puffs INH Q6HR PRN 07/29/20 08/26/20 Inhaler] Apixaban [Eliquis] 5 mg PO BID 07/29/20 08/26/20 Aspirin [[place] Aspirin] 81 mg PO DAILY 07/29/20 08/26/20 Carvedilol [Coreg] 6.25 mg PO BID 07/29/20 08/26/20 Furosemide [Lasix] 20 mg PO BID 07/29/20 08/26/20 Ipratropium/Albuterol [Duoneb] 1 vial INH Q6HR PRN 07/29/20 08/26/20 Loperamide [Imodium] 2 mg PO QID PRN 07/29/20 08/26/20 Losartan Potassium 25 mg PO BID 07/29/20 08/26/20 Mometasone/Formoterol [Dulera 100 2 puffs INH BID 07/29/20 08/26/20 Mcg-5 Mcg Inhaler] Nitroglycerin [Nitrostat] 0.4 mg SL .Q5 PRN 07/29/20 08/26/20 Ondansetron [Ondansetron Odt] 8 mg PO Q8HR PRN 07/29/20 08/26/20 Pantoprazole [Protonix] 40 mg PO DAILY 07/29/20 08/26/20 Senna [Senokot] 8.6 mg PO DAILY PRN MDD titrate to 07/29/20 08/26/20 effect polyethylene glycoL 3350 [Miralax] 17 gm PO DAILY PRN 07/29/20 08/26/20 Prednisone 5 mg PO DAILY 08/26/20 08/26/20 Simethicone [Gas Relief] 180 mg PO TID 08/26/20 08/26/20 - Allergies Allergies/Adverse Reactions: Allergies Allergy/AdvReac Type Severity Reaction Status Date / Time Sulfa (Sulfonamide Allergy Unknown Verified 01/28/19 13:13 Antibiotics) Review of Systems - Constitutional Constitutional: reports: Fatigue (persistent), Weakness (ambulating more), Weight loss. denies: Fever, Chills - Eyes Eyes: reports: Vision loss, Corrective lenses (needs new glasses after cataract surgery on right) - Ears, Nose & Throat Ears, Nose & Throat: reports: Hearing loss, Hearing aids, Dry mouth. denies: Mouth lesions - Cardiovascular Cardiovascular: reports: Lightheadedness, Exertional dyspnea, Decr. exercise tolerance. denies: Edema (improved) - Respiratory Respiratory: reports: Orthopnea (sleeps on several pillows), SOB at rest, SOB with exertion. denies: Cough, Sputum production, Wheezing - Gastrointestinal Gastrointestinal: reports: Abdominal pain (mild epigastric discomfort), Abdominal distention, Diarrhea (has been fluctutaing), Nausea, Vomiting, Bile emesis, Poor appetite, Early satiety (only fluids today), Other (colostomy;; significant gas). denies: Constipation (no output today), Coffee grounds emesis - Genitourinary Genitourinary: reports: Incontinence - Musculoskeletal Musculoskeletal: reports: Back pain (new symptom), Muscle aches, Stiffness, Muscle weakness, Joint pain, Assistive devices (uses walker) - Integumentary Integumentary: reports: Rash (improved), Dryness, Hair changes (alopecia) - Neurological Neurological: reports: General weakness, Memory problems - Psychiatric Psychiatric: reports: Depression, Anxiety - All Other Systems All Other Systems: reports: Reviewed and negative Physical Exam - Vital Signs Temperature: 97.7 C Pulse Rate: 84 Respiratory Rate: 18 O2 Saturation: 93 (ra @ rest) Blood Pressure: 130/68 - Physical Exam General Appearance: positive: No acute distress, Alert Eyes Bilateral: positive: Normal inspection ENT: positive: Dry mucous membranes Neck: positive: Trachea midline Cardiovascular: positive: Regular rate & rhythm Respiratory: positive: Diminished throughout, Diminished in bases. negative: Wheezes Abdomen: positive: Nml bowel sounds, Tenderness, Mass, Distended, Taut, Other (colostomly) Skin: positive: Pallor, Dryness, Rash Extremities: negative: Pedal edema Neurologic/Psychiatric: positive: Oriented x3, Mood/affect nml, Weakness, Flat affect Palliative Care - POLST Patient has POLST: Yes POLST Status: DNR, Selective Treatment Performance Status: Patient's functional status is deteriorated over the last 48 hours, with increased weakness, only able to ambulate short distances with frequent rests. Had improved prior to this and was more independent, but is doing poorly today. - Palliative Care Discussion: Visit involved longfamily discussion, options of comfort care and transition to hospice versus follow-up hospital for acute intervention and work-up. We discussed given her high symptom burden, and unrelenting vomiting, my concern was about her comfort, though hospice certainly could transition her with focus on medications for sedation, pain relief, but if obstructed would need to essentially just transition to n.p.o. Patient admits most likely is not going to make it to her [place] family reunion, she had agreed to chemotherapy in the hopes of prolonging her quantity of life to be able to attend, unclear given her worsening status if chemotherapy would still be an option at this point. Discussed findings may help guide her as far as which direction to go, and at any point she could transition home with hospice support in alignment with her wishes for more minimal interventions and a at home. Patient is quite ambivalent, unclear if she understands the implications of either decision, though I was quite clear if she does not go and we are talking days to weeks not months unless she is only partially obstructed and has some resolution. Discussed patient already is mildly dehydrated, recommended they go in tonight as soon as can get ready, given need for work-up and also for comfort. After much discussion patient, will be going and she prefers to go into [facility] where she has been seen before, discussion with daughter regarding her wishes, she wants to support her mother though she does understand her disease is progressing and may be very little to offer her other than things that might improve her comfort. Impression and Recommendations - Palliative Care Impression: This is a 79-year-old woman with known primary high-grade serous carcinoma with peritoneal carcinomatosis, hepatic capsular implants, and worsening ascites and pleural effusions. Patient presents with acute obstructive symptoms, with persistent nausea and vomiting and needing to make a decision regarding comfort care versus intervention. After much discussion, patient will be seen at [facility], depending on the outcome, may or may not transition to hospice. Recommendations/Counseling Done: 1. GI obstruction. Patient presents with acute symptoms of GI obstruction, most likely complicated by her carcinomatosis and ascites unclear if it is total or partial. Currently she is vomiting large volumes of fluid/bile and is in somewhat distressed with this. Though she denies any acute pain, she does appear uncomfortable. Counseling regarding concerns regarding obstructive symptoms, ability to manage at home and acute phase, as well as there may be some palliative options such as a venting gastrostomy. 2. Fatigue. This is multifactorial, patient had been doing somewhat better with her prednisone 5 mg, and functional status is improving, thus the decision to possibly consider therapy. Patient currently now presents with mild to hydration, increased weakness and declining functional status. 3. Advanced care planning. Patient does have a POLST in place with DN AR/DNI and selective treatments, much discussion regarding the continuum of care and possible transition to hospice. This may still be a possibility on discharge from [facility], will continue to follow. Patient had been scheduled to be admitted by [facility] tomorrow, called and canceled admit with update regarding possible transition to hospice on discharge. 60 minutes with greater than 50% of this done in counseling regarding patient's options and goals of care, patient to go to [facility], will follow, update to [facility] and followed up with [facility] and completion of their discharge. Will update [facility] hospice also for possible pending admit
== END 2020-09-19 15:31 | disposition home or self-care (01) ==
LOC: PC 15:30
PROVIDERS: ATTEND Nurse Practitioner Adult Health
DX: Z51.5 Encounter for palliative care (principal); K56.609 Unspecified intestinal obstruction, unspecified as to partial versus complete obstruction; R11.2 Nausea with vomiting, unspecified; R53.83 Other fatigue; C56.9 Malignant neoplasm of unspecified ovary; C78.7 Secondary malignant neoplasm of liver and intrahepatic bile duct; C78.6 Secondary malignant neoplasm of retroperitoneum and peritoneum; R18.8 Other ascites; J90 Pleural effusion, not elsewhere classified; F32.9 Major depressive disorder, single episode, unspecified; F41.9 Anxiety disorder, unspecified; I11.0 Hypertensive heart disease with heart failure; I50.9 Heart failure, unspecified; I43 Cardiomyopathy in diseases classified elsewhere; I82.4Z2 Acute embolism and thrombosis of unspecified deep veins of left distal lower extremity; J43.9 Emphysema, unspecified; H54.7 Unspecified visual loss; R32 Unspecified urinary incontinence; Z66 Do not resuscitate; Z93.3 Colostomy status; Z79.01 Long term (current) use of anticoagulants; Z79.51 Long term (current) use of inhaled steroids; H91.90 Unspecified hearing loss, unspecified ear; Z79.02 Long term (current) use of antithrombotics/antiplatelets; Z79.82 Long term (current) use of aspirin; Z79.52 Long term (current) use of systemic steroids; Z79.899 Other long term (current) drug therapy
CPT/HCPCS: 99350